=== PATIENT | male | born 1990 | race Caucasian/White ===

== ENCOUNTER → 2020-05-10 13:17 | Outpatient (CLI) | payer SELFPAY ==
[2020-01-14 17:53] VITALS: BMI 40.1
== END ==
PROVIDERS: PCP Internal Medicine; Referring Provider Internal Medicine; Visit Provider Internal Medicine
DX: G47.10 Hypersomnia, unspecified (principal)
CPT/HCPCS: 95806

== ENCOUNTER 2021-09-22 12:27 | Emergency (ER) | payer OTHER, SELFPAY ==
[2021-09-22 12:28] VITALS: BP 165/103; PULSE 89; RESP 16; TEMP 36.6; O2SAT 100; BMI 38.0
--- NOTE | 2021-09-22 12:50 | RAD_ITS ---
STUDY: X-RAY - RIGHT FOOT CLINICAL: Male, 31 years old. pain TECHNIQUE: 3 view(s) of the foot. COMPARISON: None. FINDINGS: Normal talus, calcaneus, and tarsal bones. Normal visualized subtalar, talonavicular, calcaneocuboid, tarsal and tarsometatarsal articulations. Normal metatarsi. Normal metatarsophalangeal joint of the great toe. Normal tibial and fibular sesamoid bones. Normal interphalangeal joint of the great toe. Normal phalanges of the great toe. Normal second through fifth metatarsophalangeal joints. Normal interphalangeal joints and phalanges of the lesser toes. The soft tissue structures are unremarkable. RAD/Foot min 3 Views IMPRESSION: Normal x-ray examination of the foot. Electronically Signed: Guilherme Robins MD at 13:10 EST Tel , Service support ,
--- NOTE | 2021-09-22 12:50 | ED.VIS.LOWEX ---
HPI History of Present Illness Chief Complaint: Lower Extremity Injury Informant: patient Narrative Narrative: Patient complains of right great toe pain. He did dropped a small piece of angle iron on this area on Saturday. But he states the pain really did not start until Saturday. It hurts more with bearing weight and better with rest. He has no fevers chills nausea vomiting. No other areas of pain. He does not have a history of gout. He takes no medications. He did try some Tylenol and Motrin which helped. PFSH PFS Medical History No pertinent past medical history Home Medications bupropion HCl 150 mg tablet,12 hr sustained-release 150 mg PO QAM #30 ea 01/14/20 [Rx Last Taken Unknown] oxycodone-acetaminophen [Percocet] 1 tab PO Q6H PRN 3 Days #10 tab 09/22/21 [Rx Last Taken Unknown] prednisone 60 mg PO DAILY #15 tab 09/22/21 [Rx Last Taken Unknown] Allergy/AdvReac Type Severity Reaction Status Date / Time No Known Allergies Allergy Verified 01/14/20 17:52 Family History Mother Anxiety Asthma Arthritis Blood clot in vein Hypertension Diabetes Surgical History No history of previous surgery Social History Smoking Status: Current every day smoker tobacco type: cigarettes alcohol intake: current alcohol intake frequency: a few times a week Alcohol type: wine substance use type: does not use what type of physical activity do you participate in: none ROS ROS ED Constitutional Constitutional ED: Denies chills or fever(s) Genitourinary Genitourinary ED: Denies dysuria or urinary frequency Musculoskeletal Musculoskeletal: Reports other Details: See history of present illness. ; Denies back pain or neck pain Integumentary Denies abscess, Abrasions or rash Neurologic Neurologic: Denies paresthesias or weakness Endocrine Endocrinology: Denies polydipsia or polyuria Hematologic/Lymphatic Hematologic/Lymphatic: Denies easy bleeding or easy bruising Allergic/Immunologic Allergic/Immunologic ED: Denies urticaria EXAM Physical Exam Const Vital Signs: 09/22/21 12:28 Temperature 98 F Temperature Source Temporal Pulse Rate 89 Respiratory Rate 16 Blood Pressure 165/103 H Blood Pressure Mean 123 Pulse Ox 100 Oxygen Delivery Method Room Air Positive well nourished, well developed and obese General Appearance ED: well developed and NAD Nutritional Appearance: obese HEENT normocephalic and atraumatic Resp normal respiratory effort Cardio regular rate Extremity Extremity Narrative: Patient does have some tenderness and pain with motion of his right first MTP joint. It is not warm. Is not notably red. There is no deformity or break in the skin. No lymphangitic streaking or swelling. Neuro Sensorium / Orientation: alert; Negative for lethargic Psych mental status grossly normal Skin Lesions: no lesions Rashes: no rashes MDM MDM MDM Narrative Medical decision making narrative: X-ray shows no sign of acute process. The summation of the history and exam and results of this film point to this likely being gout. We will initiate treatment. I did do an online prescribing report. No controlled substances. He will follow up with his physician. Return with fevers, or swelling pain or other areas of discomfort or any other concerns. Radiography Diagnostic Testing: Clinical Impression(s) from Imaging Studies Foot X-Ray 09/22/21 12:50 IMPRESSION: Normal x-ray examination of the foot. Electronically Signed: Guilherme Robins MD at 13:10 EST Tel , Service support , Discharge Plan Triage Chief Complaint: Lower Extremity Injury ED Provider: Titi Arcos Dx/Rx/DC Orders Clinical Impression: Gouty arthritis of toe of right foot Instructions: ED Gout Prescriptions: New oxycodone-acetaminophen [Percocet] 5-325 mg tablet 1 tab PO Q6H PRN (Reason: pain) 3 Days Qty: 10 RF: 0 prednisone 20 MG tablet 60 mg PO DAILY Qty: 15 RF: 0 No Action bupropion HCl 150 mg tablet sustained-release 12 hr 150 mg PO QAM Qty: 30 RF: 1 Primary Care Provider: Care Physician,No Primary Referrals: Luz Marina Kumar MD [STAFF PHYSICIAN] - 3-5 Days if not improving Care Physician,No Primary [Primary Care Provider] - Disposition Disposition: Home, Self Care
[2021-09-22] MEDS: oxyCODONE 5 MG Tablet PO (13:44)
[2021-09-22] MEDS: predniSONE 20 MG Tablet 60 MG PO (13:45)
== END 2021-09-22 13:47 | disposition home or self-care (01) ==
PROVIDERS: Emergency Provider Emergency Medicine
DX: M10.9 Gout, unspecified (principal); F17.210 Nicotine dependence, cigarettes, uncomplicated; E66.9 Obesity, unspecified; Z68.38 Body mass index [BMI] 38.0-38.9, adult
CPT/HCPCS: 73630; 99283

== ENCOUNTER 2021-10-25 20:45 | Emergency (ER) | payer SELFPAY ==
[2021-10-25 20:46] VITALS: BP 161/105; PULSE 98; RESP 16; TEMP 36.8; O2SAT 100; BMI 39.5
--- NOTE | 2021-10-25 21:06 | EX.ED.UPPERE ---
HPI History of Present Illness Chief Complaint: Upper Extremity Injury Detail of Chief Complaint: Left small finger distal and amputation Informant: patient Occured/Mechanism Mechanism/Context: Yes injury Onset/Context/Timing Onset: Today Context: Sudden Onset Timing: Continuous Quality of Pain: Dull and Aching Current Severity: Moderate Maximum Severity: Moderate Associated Symptoms Associated Symptoms: Negative for Parasthesia, Weakness and Loss of Funtion Narrative Narrative: 31-year-old male no sniffing past medical or surgical history. Eyes [id number]. He was working on his own garage door at home when he hit the garage door button the chain wrapped around his left small finger mid to distal third and basically amputated the distal end of the small finger. No other injuries. Unsure of his last tetanus is pretty confident it was more than 10 years ago. Denies any other injuries. Tetanus Immunization: >10 years Prior similar symptoms: No Recent Illness/Hospitalization: No PFSH PFSH Medical History No pertinent past medical history no medical history Home Medications NK 10/25/21 [History Last Taken Unknown] Allergy/AdvReac Type Severity Reaction Status Date / Time No Known Allergies Allergy Verified 10/25/21 20:48 Family History Mother Anxiety Asthma Arthritis Blood clot in vein Hypertension Diabetes Surgical History No history of previous surgery no surgical history Social History Smoking Status: Current every day smoker tobacco type: cigarettes alcohol intake: current alcohol intake frequency: a few times a week Alcohol type: wine substance use type: does not use what type of physical activity do you participate in: none ROS ROS ED ROS Narrative Denies recent illness. Review of Systems ROS Unobtainable: Denies due to encephalopathy Constitutional Constitutional ED: Denies fever(s) Eyes Eyes: Denies change in vision ENT ENT ED: Denies ear pain Cardiovascular Cardiovascular: Denies chest pain Respiratory/Chest Respiratory/Chest: Denies dyspnea Gastrointestinal Gastrointestinal: Denies abdominal pain, diarrhea, nausea or vomiting Genitourinary Genitourinary ED: Denies dysuria Musculoskeletal Musculoskeletal: Denies myalgias Integumentary Denies rash Neurologic Neurologic: Denies headache(s) Psychiatric Psychiatric: Denies depression Endocrine Endocrinology: Denies polyuria Hematologic/Lymphatic Hematologic/Lymphatic: Denies easy bruising Allergic/Immunologic Allergic/Immunologic ED: Denies urticaria EXAM Physical Exam Narrative Exam Narrative: 31-year-old male no acute distress. Vital signs stable afebrile. Lungs clear. Heart regular rate and rhythm. Abdomen soft. Left hand thumb and all digits except the left small finger unremarkable nontender with normal range of motion. Left small finger mid to distal third there is a complete amputation. Otherwise he has normal flexion-extension sensation all other digits. There is no pulsatile bleeding. Otherwise exam unremarkable. Const Vital Signs: 10/25/21 20:46 Temperature 98.3 F Temperature Source Temporal Pulse Rate 98 Respiratory Rate 16 Blood Pressure 161/105 H Blood Pressure Mean 123 Pulse Ox 100 Oxygen Delivery Method Room Air Positive well nourished and well developed; Negative for obese, cachectic, contractures or unkempt General Appearance ED: well developed and NAD; Negative for unkempt, cachectic, contractures, cyanotic or diaphoretic Nutritional Appearance: Negative for cachectic or obese HEENT Reports moist mucous membranes normocephalic and atraumatic; Negative for trauma or tenderness Eyes PERRL and EOMs intact bilaterally Neck full ROM and supple General: Negative for tenderness Chest Wall inspection of chest normal and palpation of chest normal Resp normal respiratory effort and clear to auscultation bilaterally Auscultation: Negative for rales, rhonchi or wheezes Cardio regular rate, regular rhythm, S1 normal heart sound, S2 normal heart sound and no murmurs GI non-tender, non-distended and no masses Auscultation: normoactive bowel sounds Palpation: soft; Negative for tender or guarding Back/Spine no CVA tenderness General Back: Negative for CVA tenderness Cervical Spine: Negative for cervical spine tenderness Thoracic Spine / Upper Back: Negative for thoracic spinal tenderness Lumbar Spine / Lower Back: Negative for lumbar spinal tenderness Extremity normal to inspection; Negative for full ROM Extremity Narrative: Left small finger mid to distal left finger amputation. General Extremety ED: Negative for edema General Extremity: Negative for edema Neuro oriented x3, moves all extremities and no focal motor deficits Sensorium / Orientation: alert, oriented to person, oriented to place and oriented to time; Negative for orientation impaired, lethargic or stuporous Motor Exam: strength 5/5 throughout Psych mental status grossly normal Appearance: Negative for unkempt Attitude: No agitated Mood & Affect: Negative for depressed or tearful Skin Skin Narrative: Left small finger complete amputation of the distal end. Lesions: no lesions Rashes: no rashes Trauma: laceration; Negative for no lacerations or abrasions MDM MDM MDM Narrative Medical decision making narrative: Patient has amputation of the distal third of the left small finger. X-ray being obtained. Tetanus to be updated. Wound will be cleaned and washed. And determine if I have to revise it or not. Digital block to help the patient with the pain. Radiography Diagnostic Testing: Left small finger AP lateral view shows a distal phalanx fracture amputation. There is good coverage of soft tissue. Otherwise unremarkable. Interpreted by myself. Procedures Lacerations Left small finger amputation repair: Length: 0.79 in Depth: Muscle Shape: Linear Prep: Sterile Conditions and Shure-Clens Laceration repair: Digital block, Irrigated, Lidocaine and Skin sutures Number of Sutures/David: 3 Suture Information: Ethilon and 4-0 Comment: Left small finger distal phalanx amputation. Digital block performed with lidocaine. Proper anesthesia obtained. Wound was washed in the sink. With soap and water. Cleaned with Shur-Clens. Irrigated. Explored. No foreign body. There was good soft tissue coverage to the distal amputation. Of the distal phalanx. I closed the wound using 3 simple interrupted 4-0 Ethilon sutures. Proper hemostasis wound closure is obtained. Patient tolerated procedure well. He will be placed in a tube gauze dressing. Was instructed on wound care and suture removal in 10 days. Discharge Plan Triage Chief Complaint: Upper Extremity Injury ED Provider: Kana Singh Dx/Rx/DC Orders Clinical Impression: Finger amputation, traumatic Instructions: ED Laceration, Hand: All Closures Prescriptions: No Action NK RF: 0 Primary Care Provider: Care Physician,No Primary Referrals: Dustin Nagy MD [STAFF PHYSICIAN] - As Needed Care Physician,No Primary [Primary Care Provider] - Activity Restrictions/Additional Instructions: Ice and elevate your hand to decrease pain and swelling. Motrin and Tylenol for pain. Leave the stitches in for 10 days. You can take them out on the 10th day. Watch for any signs of infection such as pus, red streaks fracture or significant swelling if seen return. The dressing can stay on 3 to 4 days if it stays dry and clean. If it gets dirty or bleeds through or gets wet he is to be changed. Disposition Disposition: Home, Self Care
[2021-10-25] MEDS: Lidocaine 1% (20 ml mdv) 20 ML Vial 10 ML INFILT (21:13)
[2021-10-25] MEDS: Diphth,Pertuss(Acell),Tet Vac 0.5 ML Vial IM (21:13)
--- NOTE | 2021-10-25 21:15 | RAD_ITS ---
STUDY: X-RAY - LEFT HAND, ATTENTION FIFTH FINGER REASON FOR EXAM: Male, 31 years old. amputation left small finger TECHNIQUE: 3 view(s) of the finger were obtained. COMPARISON: None. FINDINGS: Normal metacarpal head. Normal metacarpophalangeal joint. Normal proximal phalanx. Normal middle phalanx. There are changes consistent with prior amputation of the mid distal phalanx of the fifth finger. There is irregularity cortical margins and associated acute infection not entirely excluded Normal proximal interphalangeal joint. Normal distal interphalangeal joint. RAD/Finger(s) Min 2 Views IMPRESSION: Status post amputation of the distal phalanx of the fifth finger with cortical irregularity which may be consistent with coexisting acute osteomyelitis however clinical correlation is recommended Electronically Signed: Ambrocio Mason MD at 21:46 EST ,
[2021-10-25] MEDS: HYDROcodone Bitartrate/Apap 5/325 Tablet PO (22:28)
[2021-10-25 22:31] VITALS: BP 154/90; PULSE 89; RESP 18; O2SAT 97
== END 2021-10-25 22:34 | disposition home or self-care (01) ==
PROVIDERS: Emergency Provider Emergency Medicine; Visit Provider Emergency Medicine
DX: S68.117A Complete traumatic metacarpophalangeal amputation of left little finger, initial encounter (principal); W23.0XXA Caught, crushed, jammed, or pinched between moving objects, initial encounter; Y93.9 Activity, unspecified; Y92.9 Unspecified place or not applicable; F17.210 Nicotine dependence, cigarettes, uncomplicated
CPT/HCPCS: 13120; 73140; 90471; 90715; 99283